=== PATIENT | female | born 1950 | race Caucasian/White ===

== ENCOUNTER 2021-10-27 10:02 | Outpatient (CLI) | payer MEDICARE, BC ==
[2021-10-27 19:17] LABS: SARS-CoV-2 PCR by NAA Not Detected (NotDetected)
== END 2021-10-27 10:03 | disposition home or self-care (01) ==
LOC: CSHLAB 10:02
PROVIDERS: ATTEND Internal Medicine Pulmonary Disease
DX: Z20.822 Contact with and (suspected) exposure to COVID-19 (principal)
CPT/HCPCS: U0003; U0005

== ENCOUNTER 2021-11-01 09:46 | Outpatient (CLI) | payer MEDICARE, BC | END 2021-11-01 09:47 | disposition home or self-care (01) | LOC: CSHCP 09:46 | PROVIDERS: ATTEND Internal Medicine Pulmonary Disease | DX: R06.02 Shortness of breath (principal); R06.00 Dyspnea, unspecified; R05.3 Chronic cough | CPT/HCPCS: 94060; 94726; 94729; 94760 ==